=== PATIENT | female | born 1980 | race Caucasian/White ===

== ENCOUNTER 2019-12-31 09:42 | Emergency (ER) | payer OTHER ==
[~2019-12-31] VITALS: Ht 167.6 cm; Wt 74.8 kg
[2019-12-31] MEDS ORDERED: CLARITIN10 MG PO (10:27)
== END 2019-12-31 10:55 | disposition home or self-care (01) ==
LOC: ER 09:42
DX: J30.2 Other seasonal allergic rhinitis (principal)